=== PATIENT | female | born 1950 | race Hispanic/Latino ===

== ENCOUNTER → 2021-01-10 | Outpatient (CLI) | payer MEDICARE, OTHER ==
[~2021-01-10] MED LIST: ACCOLATE; ASPIR 8181 MG PO; EVISTA; LIPITOR; MULTIVITAMINS1 EAC8
== END ==
LOC: RAD 08:52
PROVIDERS: ATTEND Family Medicine
DX: Z09 Encounter for follow-up examination after completed treatment for conditions other than malignant neoplasm (principal); J44.9 Chronic obstructive pulmonary disease, unspecified
CPT/HCPCS: 71046